=== PATIENT | female | born 1955 | race Caucasian/White ===

== ENCOUNTER 2024-10-05 10:45 | Day surgery (SDC) | payer MEDICARE, OTHER, SELFPAY ==
[2024-09-29 17:04] VITALS: BMI 22.7
[2024-10-05] VITALS (7 sets, daily range): BP systolic 113–145; BP diastolic 56–86; PULSE 68–100; RESP 17–18; TEMP 36.6–36.9; O2SAT 96–100
[2024-10-05] MEDS: LACTATED RINGERS 1000ML 1,000 ML 25 ML IV (11:12)
--- NOTE | 2024-10-05 11:40 | P.PNANES_ITS ---
[facility] Disclaimer: The information contained in this section may have been updated after the patient was seen, as this information can be updated by other users. Medical History Hyperlipidemia Rupture of left Achilles tendon Surgical History History of laminectomy Family History Mother , breast cancer Cancer Father , waldenstrom macroglobulinemia Cancer Social History Smoking Status: Never smoker alcohol intake: current substance use type: denies use current occupational status: employed Travel in the last 8 weeks: Outside the [facility] Anesthesia Checklist Patient Identification Patient Identification: Verbal (Name & ) Structural Data Admitted From: Home Planned Operative Procedure/s: colonoscopy Consent for Planned Operative Procedure(s) Verified: Yes NPO Status Verified Time NPO: 00:00 Airway Assessment Mallampati Score:: Class II C-Spine Mobility Assessed: Yes TMJ Mobility Assessed: Yes Dentition: Good Dentition Neurological Assessment Level of Consciousness: Awake, Alert and Appropriate Anesthesia Plan Anesthesia Risk discussed: Yes Anesthesia Plan: Verified ASA Class: II Anesthesia Type: MAC
--- NOTE | 2024-10-05 11:48 | EXP.HP ---
History of Present Illness *Admission Date: 10/05/24 *Reason for visit:: Chronic diarrhea *History of present illness: Mrs. Gamez is a 69-year-old female who is here for diagnostic colonoscopy secondary to chronic diarrhea. The examination is deemed medically necessary for diagnostic colonoscopy. The patient has been seen, interviewed and examined prior to the procedure by both myself and the anesthesia provider. [facility] Disclaimer: The information contained in this section may have been updated after the patient was seen, as this information can be updated by other users. Medical History Hyperlipidemia Rupture of left Achilles tendon Surgical History History of laminectomy Family History Mother , breast cancer Cancer Father , waldenstrom macroglobulinemia Cancer Social History Smoking Status: Never smoker alcohol intake: current substance use type: denies use current occupational status: employed Travel in the last 8 weeks: Outside the [facility] [place] Other Medical History Have you received the Pneumonia Vaccine: Yes Review of Systems Review of Systems Review of systems (narrative): Negative *Cardiovascular Comments: Negative *Gastrointestinal Comments: Negative *Genitourinary Comments: Negative *Musculoskeletal Comments: Negative *Neurologic Comments: Negative Meds Home Medications and Allergies Home Medications ?Medication ?Instructions ?Recorded ?Confirmed ?Type loperamide 2 mg capsule 2 mg PO Q4H PRN 07/28/24 07/28/24 History (Anti-Diarrheal (loperamide)) rifaximin 550 mg tablet (Xifaxan) 550 mg PO TID 14 days #42 tabs 07/28/24 07/28/24 Rx [id number] 140 gram-sod sulfate 9 See Rx Instructions PO .COMPLEX #3 09/25/24 Rx gram-NaCl 5.2gram-KCl-C oral pwdr ea packs (Plenvu) lisinopril 5 mg tablet 5 mg PO DAILY 09/29/24 09/29/24 History New Prescriptions to Start Prescriptions: Allergies Allergy/AdvReac Type Severity Reaction Status Date / Time acetaminophen (From Percocet) Allergy Hives Verified 10/05/24 11:02 oxycodone (From Percocet) Allergy Hives Verified 10/05/24 11:02 Exam Data for Last 24 hours Vital signs and Labs for Last 24 Hours: Temp Pulse Resp BP Pulse Ox O2 Del Method 97.9 F 86 17 145/86 H 97 Room Air 10/05/24 11:03 10/05/24 11:03 10/05/24 11:03 10/05/24 11:03 10/05/24 11:03 10/05/24 11:03 *Routine HEENT Exam Head: Present normocephalic Eye: Present EOMI and PERRL ENT: Present mucous membranes moist *Routine Neck Exam Neck: Present supple *Routine Respiratory Exam Respiratory: Present CTA bilaterally *Routine Cardiovascular Exam Cardiovascular: Present RRR *Routine Abdominal Exam Abdominal: Present soft and normoactive bowel sounds; Absent tenderness *Routine Rectal Exam Rectal:: deferred *Routine Genitalia Exam Genitalia:: deferred *Routine Extremities Exam Extremities: Absent cyanosis, clubbing or edema *Routine Skin Exam Skin: Present warm; Absent rash *Routine Neurological Exam Neurological: Present alert and oriented X3 Assessment and Plan *Assessment and plan (1) Chronic diarrhea: Status: Acute Category: Medical Code(s): K52.9 - Noninfective gastroenteritis and colitis, unspecified Plan A/P: 1. Chronic diarrhea is the preprocedural diagnosis. The patient will be anesthetized/sedated using MAC sedation. The patient has been seen and examined. Cardiac and lung assessment prior to the examination is stable. Proceed with planned diagnostic colonoscopy
--- NOTE | 2024-10-05 11:59 | P.PCN_ITS ---
[facility] Procedure Note Date: 10/05/24 Time: 12:16 Procedure Note:: Colonoscopy Procedure Report: Colonoscopy with cold biopsies and cold snare polypectomy Endoscopist: Christopher Dewey II, MD Referring physician: Amita Greene MD [address] [place] [id number] Date of Procedure: October 05, 2024 Equipment: Olympus 190 variable stiffness pediatric colonoscope Sedation: MAC sedation Indication: Mrs. Gamez is a 69-year-old female who is here for diagnostic colonoscopy. The patient has had chronic diarrhea for the 6 months. She had an extensive evaluation in March 2017 including evaluation of the gut microbiome. At that time she had a normal fecal elastase and normal fecal calprotectin. Her PCR testing showed no detectable microbial pathogens. Over the last several months, she has had the chronic diarrhea and lost 10 to 15 pounds. She has had no gassiness or bloating. Her colonoscopy in June 2022 revealed 3 polyps (tubular adenoma x 1/small serrated adenomas x 2) which were removed. She does not consume any artificial sugars/carbohydrates and has had no prior gallbladder surgery. Her celiac testing was negative. Her serum IgA level was normal at 324. The patient began Viberzi and did have some improvement after 2 weeks. Procedure: Prior to the procedure, a history and physical exam was performed, and patient's medications and allergies were reviewed. The risks, benefits and alternatives of the sedation and procedure were discussed with the patient. All questions were answered and informed consent was obtained. The patient was brought to the procedure room. Patient identification and proposed procedure were verified by the physician and the nurse. The patient was placed in a left lateral decubitus position and the scope was passed under direct vision. Throughout the procedure, the patient's blood pressure, pulse, and oxygen saturations were monitored continuously. The colonoscopy was accomplished without difficulty. The patient tolerated the procedure well. Findings: On digital rectal examination there was normal rectal tone. There were no external hemorrhoids. The colonoscope was introduced through the anal canal to the rectum and advanced to the cecum. The ileocecal valve and appendiceal orifice were identified. The scope was advanced a short distance into the ileum which appeared grossly normal. The scope was then withdrawn into the colon. There were 2 polyps (cecum x 1 (2 to 3 mm) and sigmoid (4 mm)). These were both removed via cold snare polypectomy. Random cold biopsies were taken from the right and from the left colon to rule out microscopic colitis. The remaining cecum, ascending, transverse and descending colon were normal. There were a few shallow scattered diverticuli in the sigmoid colon. The rectum itself was normal. Upon retroflexion within the rectum there were grade 1-2 internal hemor rhoids. The preparation was excellent throughout with [place] Preparation Score of 9. The cecal time was 14 minutes. Impression: 1. Diminutive colonic polyps x 2 2. Very mild sigmoid diverticulosis 3. Grade 1-2 internal hemorrhoids Plan: I will follow-up the biopsies to rule out microscopic colitis. If the biopsies are normal, I would continue Viberzi with the addition of bulking fiber (i.e. FiberCon). We will discuss treatment options. 2. I will follow-up the polyp histology and recommend repeat surveillance colonoscopy again in 5 years.
== END 2024-10-05 13:05 | disposition home or self-care (01) ==
PROVIDERS: Visit Provider Internal Medicine Gastroenterology
PROC: (CPT 45380; principal; 2024-10-05 12:00)
DX: K52.9 Noninfective gastroenteritis and colitis, unspecified (principal); Z86.0101 Personal history of adenomatous and serrated colon polyps; K63.5 Polyp of colon; K57.30 Diverticulosis of large intestine without perforation or abscess without bleeding; K64.8 Other hemorrhoids
CPT/HCPCS: 45380; 45385; 88305; J7120